=== PATIENT | male | born 1945 | race Caucasian/White ===

== ENCOUNTER 2023-05-03 12:29 | Outpatient (CLI) | payer MEDICARE, SELFPAY ==
[2023-05-03] MEDS: ALBUTEROL 0.083% 2.5 MG/3 ML NEB IH (14:19)
[2023-05-03 16:11] LABS: C-Reactive Protein 7.4 mg/L (0-4)
[2023-05-03 16:16] LABS: Erythrocyte Sedimentation Rate 26 mm/hr (0-20)
[2023-05-04 08:26] LABS: RA Latex Turbid. 515.3 IU/mL (<14.0)
[2023-05-04 15:34] LABS: Cytoplasmic (C-ANCA) <1:20 titer (Neg:<1:20); Perinuclear (P-ANCA) <1:20 titer (Neg:<1:20)
[2023-05-06 15:08] LABS: Antinuclear Antibodies, IFA Negative (.)
[2023-05-09 23:28] LABS: Antinuclear Antibodies (ANA) Negative
== END 2023-05-03 23:59 ==
LOC: RT 12:30
PROVIDERS: PCP Family Medicine; Visit Provider Internal Medicine Pulmonary Disease
DX: J84.9 Interstitial pulmonary disease, unspecified (principal); R06.09 Other forms of dyspnea
CPT/HCPCS: 36415; 84550; 85651; 86038; 86140; 86225; 86235; 86256; 86431; 94060; 94618; 94726; 94729

== ENCOUNTER 2023-05-09 09:19 | Outpatient (CLI) | payer MEDICARE, SELFPAY ==
--- NOTE | 2023-05-09 09:21 | CT_ITS ---
FINAL REPORT TECHNIQUE: Axial CT images were performed from the lung apices through the upper abdomen. The study was performed as a high-resolution CT, which included supine inspiration and expiration axial views, prone inspiration axial views, and high-resolution views. Coronal and sagittal reformats were submitted. This study was performed with techniques to keep radiation doses as low as reasonably achievable (ALARA). Individualized dose reduction techniques using automated exposure control or adjustment of mA and/or kV according to the patient's size were employed. CLINICAL HISTORY: High Res CT chest COMPARISON: None FINDINGS: There is no axillary adenopathy. Several borderline in size mediastinal nodes are present. No adenopathy is seen. Heart size is normal. Moderate coronary artery calcifications are noted. There is no pericardial or pleural effusion. Partially imaged 36 mm right renal upper pole presumed cyst is present, along with a smaller left renal presumed cyst. There is moderate peripheral interstitial fibrosis with mild honeycombing. Mild changes of emphysema are present. No evidence of bronchiectasis is seen, and no air trapping is seen on expiration views. There is a spiculated 26 mm nodule in the lateral right lung base, very worrisome for neoplasm. IMPRESSION: Spiculated lateral right lung base mass, 26 mm in size, very worrisome for neoplasm. Recommend PET CT and/or CT-guided biopsy for further evaluation. Moderate peripheral interstitial fibrosis with mild honeycombing. These results were called to Dr. Monge's office 05/10/2023 at 10:15 AM. Reviewed, Interpreted and Dictated by Olaf Cardozo III, MD Transcribed by Shell Tidwell Authenticated and [facility]
[2023-05-10 07:13] LABS: Hepatitis B Surface Antigen Negative (Negative)
[2023-05-11 16:15] LABS: QuantiFERON-TB Gold Plus Negative (Negative)
[2023-05-14 09:47] LABS: Hepatitis C Antibody Non Reactive
== END 2023-05-09 23:59 ==
LOC: RAD 09:21
PROVIDERS: PCP Internal Medicine Pulmonary Disease; Visit Provider Internal Medicine Pulmonary Disease
DX: D84.821 Immunodeficiency due to drugs; Z79.899 Other long term (current) drug therapy; M06.9 Rheumatoid arthritis, unspecified; R10.9 Unspecified abdominal pain; R06.02 Shortness of breath; J84.89 Other specified interstitial pulmonary diseases; R91.1 Solitary pulmonary nodule; Z87.891 Personal history of nicotine dependence
CPT/HCPCS: 71250; 86480; 87340; 87380

== ENCOUNTER 2023-12-13 14:55 | Outpatient (CLI) | payer MEDICARE, SELFPAY ==
[2023-12-13 15:13] LABS: Basophils % 0.3 % (0.1-2.0); Eosinophils % 0.3 % (0.1-12.0); Hematocrit 42.8 % (42.0-52.0); Hemoglobin 13.7 g/dL (14.1-18.0); Lymphocytes # 1.3 K/mm3 (0.7-4.5); Lymphocytes % 14.7 % (10-50); Mean Corpuscular HGB Conc 32.1 g/dL (31.8-35.4); Mean Corpuscular Hemoglobin 29.4 pg (27.0-31.2); Mean Corpuscular Volume 91.7 fl (80-94); Monocytes # 0.7 K/mm3 (0.1-1.0); Monocytes % 8.1 % (1.7-9.3); Neutrophils # 6.6 K/mm3 (1.8-7.8); Neutrophils % 76.5 % (37.0-80.0); Platelet Count 205 K/mm3 (142-424); Red Blood Count 4.66 M/mm3 (4.60-6.20); Red Cell Distribution Width 17.1 % (11.5-17.5); White Blood Count 8.6 K/mm3 (4.8-10.8)
[2023-12-13 15:32] LABS: Alanine Aminotransferase 28 U/L (12-78); Albumin Level 4.2 g/dl (3.5-5.0); Albumin/Globulin Ratio 1.8 (1.1-1.8); Alkaline Phosphatase 62 U/L (38-126); Anion Gap 8.2 mEq/L (5-15); Aspartate Amino Transferase 29 U/L (17-59); Bilirubin,Total 0.6 mg/dl (0.2-1.3); Blood Urea Nitrogen 20 mg/dl (9-20); Calcium 9.4 mg/dl (8.4-10.2); Carbon Dioxide 25 mmol/L (22.0-30.0); Chloride 108 mmol/L (98-107); Estimated Glomerular Filt Rate 65 ml/min (>60); GFR (African American) 79 ML/MIN (>60); Globulin 2.4 g/dL (1.3-3.2); Glucose 123 mg/dl (74-100); Potassium 4.2 mmoL/L (3.5-5.1); Sodium 137 mmol/L (136-145); Total Protein,Serum 6.6 g/dl (6.3-8.2)
== END 2023-12-13 23:59 | disposition home or self-care (01) ==
LOC: LAB 14:56
PROVIDERS: PCP Family Medicine; Visit Provider Internal Medicine Pulmonary Disease
DX: R06.09 Other forms of dyspnea (principal); J84.9 Interstitial pulmonary disease, unspecified; J45.909 Unspecified asthma, uncomplicated
CPT/HCPCS: 36415; 80053; 85025; 86140

== ENCOUNTER 2023-12-31 14:28 | Outpatient (CLI) | payer MEDICARE, SELFPAY ==
--- NOTE | 2023-12-31 14:33 | CT_ITS ---
PROCEDURE INFORMATION: Exam: CT Chest Without Contrast; Diagnostic Exam date and time: 12/31/2023 2:44 PM Age: 78 years old Clinical indication: Other: Lung nodule; Additional info: Lung nodule, former smoker for 30 yrs TECHNIQUE: Imaging protocol: Diagnostic computed tomography of the chest without contrast. Radiation optimization: All CT scans at this facility use at least one of these dose optimization techniques: automated exposure control; mA and/or kV adjustment per patient size (includes targeted exams where dose is matched to clinical indication); or iterative reconstruction. COMPARISON: 1. CT HR CHEST X3 05/09/2023 9:[address] CHEST WITH CONTRAST 03/09/2023 1:16 PM FINDINGS: Lungs: Interval decrease in size in the previously noted spiculated mass in the lateral right lower lobe now measuring 16 mm and previously measured 26 mm. Bilateral diffuse subpleural interstitial fibrotic changes redemonstrated. Chronic elevation left hemidiaphragm with associated adjacent left basilar subsegmental atelectasis similar to previous. Lungs are otherwise clear. Pleural spaces: Unremarkable. No pneumothorax. No pleural effusion. Heart: Unremarkable. No cardiomegaly. No pericardial effusion. Coronary arteries: Mild coronary artery calcifications are noted. Lymph nodes: Stable small mediastinal nodes. No evident new or increasing mediastinal or hilar adenopathy. Vasculature: Unremarkable. No aortic aneurysm. Kidneys: Bilateral renal cysts redemonstrated. No follow-up advised. Bones/joints: Unremarkable. No acute fracture. Soft tissues: Unremarkable. IMPRESSION: 1. 16 mm right lower lobe nodule or mass with interval decrease in size. Advise additional follow-up CT in 6 months to ensure continued stability or resolution or assess for interval progression. 2. Interstitial fibrotic changes. Left basilar atelectasis with elevation left hemidiaphragm.
== END 2023-12-31 23:59 | disposition home or self-care (01) ==
LOC: RAD 14:29
PROVIDERS: PCP Family Medicine; Visit Provider Internal Medicine Pulmonary Disease
DX: R91.8 Other nonspecific abnormal finding of lung field (principal); Z87.891 Personal history of nicotine dependence
CPT/HCPCS: 71250

== ENCOUNTER 2024-03-31 13:57 | Outpatient (CLI) | payer MEDICARE, SELFPAY ==
--- NOTE | 2024-03-31 14:02 | CT_ITS ---
FINAL REPORT TECHNIQUE: Axial images were obtained from the lung apex to the mid abdomen by computed tomography. Sagittal and coronal reformatted images were obtained. This study was performed with techniques to keep radiation doses as low as reasonably achievable, (ALARA). Individualized dose reduction techniques using automated exposure control or adjustment of mA and/or kV according to the patient's size were employed. CLINICAL HISTORY: RLL nodule COMPARISON: 12/31/2023 and 05/09/2023 FINDINGS: There is a stable anterior mediastinal nodule measuring 12 mm in diameter. No other mediastinal mass or adenopathy is seen. On the lungs windows, there is linear opacity in the periphery of both lungs probably due to scarring. There is a noncalcified mass at the right base measuring 2.4 x 1.2 cm best seen on image #182 series 3. This mass is smaller than that on prior CT from April 2023; however, this is larger than the previous exam from December 2023 measuring 2.0 x 1.0 cm. There is a satellite nodule posterior to this mass measuring 6 mm best seen on image #184 series 3. There is no pericardial or pleural effusion. Limited images of the upper abdomen are unremarkable. IMPRESSION: Redemonstration of the mass in the right lower lobe, similar to the previous, with more conspicuous satellite nodule. Noncalcified mass right base, smaller than prior CT from April 2023 but larger than prior CT from December 2023. While this could represent recurrent inflammatory process, neoplasia not excluded. Recommend PET/CT. Reviewed, Interpreted and Dictated by Dash Gore MD Transcribed by Shanelle Poole Authenticated and [facility]
[2024-03-31] MEDS: ALBUTEROL 0.083% 2.5 MG/3 ML NEB IH (14:35)
--- NOTE | 2024-03-31 14:35 | PC.NURSE ---
Pre and Post Spirometry completed without incident, along with a 6 minute walk test. Albuterol 0.083% given via HHN, per written protocol, Pt tolerated tx well.
== END 2024-03-31 23:59 | disposition home or self-care (01) ==
LOC: RAD 13:59
PROVIDERS: PCP Family Medicine; Visit Provider Internal Medicine Pulmonary Disease
DX: R91.8 Other nonspecific abnormal finding of lung field (principal); R06.09 Other forms of dyspnea
CPT/HCPCS: 71250; 94060; 94618; J7613

== ENCOUNTER 2024-09-23 12:11 | Outpatient (CLI) | payer MEDICARE, SELFPAY ==
--- OUTSIDE RECORDS SUMMARY | 2024-09-23 12:14 | XMS_ITS ---
Author Organization Unknown TREATMENT PLAN Planned Care Start Date Provider Encounter for Check-up [id number] Aimee Brewster
--- OUTSIDE RECORDS SUMMARY | 2024-09-23 12:14 | XMS_ITS | Encounter Summary ---
Author Organization Healthcare Address [address] [place] [address] Care Team Providers Care Hand Tier Name Role Phone Pcp, No Primary Care Provider Unavailabl e Reason for Referral * Consultation (Routine) - Closed Specialty Diagnoses / Procedures Referred By Contac t Referred To Contact Orthopaedic Surgery Diagnoses Spinal stenosis of lumbosacral region Cedric Stein PA [address] [place] [address] Phone: tel: fax: Medical [facility] [address], [address] [place] [address] Phone: tel: fax: Referral ID Status Reason Start Date Expiration Date Visits Re quested Visits Authorized [id number] Closed 10/19/2023 04/19/2025 1 1 Encounter Details Date Type Department Care Team (Late st Contact Info) Description 10/19/2023 [facility] [address] [place] [address] Cedric Stein PA [address] [place] [address] Spinal stenosis of lumbosacral region (Primary Dx) Social History Tobacco Use Types Packs/Day Years Used Date Smoking Tobacco: Never Smokeless Tobacco: Never Alcohol Use Standard Drinks/Week Comments Yes 0 (1 standard drink = 0.6 oz pur e alcohol) rarely PHQ-2 Answer Date Recorded Patient Health Questionnaire-2 Score 0 05/16/2023 Sex and Gender Information Value Date Recorded Sex Assigned at Not on file Legal Sex Male 7:48 PM EDT Gender Identity Not on file Sexual Orientation Not on file documented as of this encounter Plan of Treatment Scheduled Referrals Name Type Priority Associated Diagnoses Orde r Schedule Ambulatory referral to Orthopaedics Spine Outpatient Referral Routine Spinal stenosis of lumbosacral region Expected: 10/19/2023 (Approximate), Expires: 04/20/2025 documented as of this encounter Visit Diagnoses Diagnosis Spinal stenosis of lumbosacral region- Primary documented in this encounter Additional Health Concerns Assessment Noted Time A fall risk assessment has been complete d for the patient 05/16/2023 9:51 AM EDT A Body Mass Index follow-up plan has been documented for the patient 05/16/2023 11:24 AM EDT documented as of this encounter Care Teams Hand Tier Relationship Specialty Start Date End Date Pcp, [place] [address] PCP - General Family Medicine 04/19/23 documented as of this encounter
--- OUTSIDE RECORDS SUMMARY | 2024-09-23 12:14 | XMS_ITS | Clinical Summary ---
Author Organization Healthcare Address [address] [place] [address] Care Team Providers Care Instrumentation Fitter Name Role Phone Pcp, No Primary Care Provider Unavailabl e Allergies Active Allergy Reactions Criticality Noted Date Comments Codeine Other - please docum ent in the comment field Low 04/17/2011 itching Oxycodone Unknown - Patient st ates they do not know rxn details Low 04/17/2011 Medications albuterol 108 (90 Base) MCG/ACT inhaler INHALE 1 TO 2 PUFFS BY MOUTH EVERY 4 TO 6 HOURS Active atorvastatin (Lipitor) 40 MG tablet Active dilTIAZem CD (Cardizem CD) 300 MG 24 hr capsule 03/29/2023 Active hydroCHLOROthiaz kary (HYDRODiuril) 25 MG tablet 04/11/2023 Active Lantus SoloStar 100 UNIT/ML injection pen 05/15/2023 Activ e BD ULTRA-FINE PEN NEEDLES 29G X 12.7MM 05/15/2023 Active losartan (Cozaar) 25 MG tablet 05/15/2023 Active metFORMIN (Glucophage) 850 MG tablet Active mycophenolate (Cellcept) 500 MG tablet Take 1 tablet (500 mg) by mouth 2 (two) times a day. 05/10/2023 Active predniSONE (Deltasone) 10 MG tablet Active ASPIRIN 81 MG chewable tablet Chew 1 tablet (81 mg) 1 (one) time each day. Active NovoLOG FLEXPEN 100 UNIT/ML injection pen 05/15/2023 Activ e Immunizations Immunization Administration Dates Next Due Influenza Vaccine, Quadrivalent, Adjuvanted 11/28,12/22/2020 Influenza, high-dose, quadrivalent 12/07/2021,,12/16/2015 Moderna Covid-19 Vaccine 12y +, Erickson Protein, Preservative free 03/26/2023 Pneumococcal Conjugate PCV 13 12/16/2015 Family History Medical History Relation Name Comments No Known Problems Father No Known Problems Mother Relation Name Status Comments Father Mother Social History Tobacco Use Types Packs/Day Years Used Date Smoking Tobacco: Never Smokeless Tobacco: Never Tobacco Cessation:Counseling Given: Not Answered Alcohol Use Standard Drinks/Week Comments Yes 0 (1 standard drink = 0.6 oz pur e alcohol) rarely PHQ-2 Answer Date Recorded Patient Health Questionnaire-2 Score 0 05/16/2023 Sex and Gender Information Value Date Recorded Sex Assigned at Not on file Legal Sex Male 7:48 PM EDT Gender Identity Not on file Sexual Orientation Not on file Last Filed Vital Signs Vital Sign Reading Time Taken Comments Blood Pressure 110/73 11/01/2023 10:45 AM EDT Pulse 85 11/01/2023 10:45 AM EDT Temperature 36.2 C (97.2 F) 05/16/2023 9:38 AM EDT Respiratory Rate - - Oxygen Saturation 98% 11/01/2023 10:45 AM EDT Inhaled Oxygen Concentration - - Weight 87.1 kg (192 lb) 11/01/2023 10:45 AM EDT Height 180.3 cm (5' 11 ) 11/01/2023 10:45 AM EDT Body Mass Index 26.78 11/01/2023 10:45 AM EDT Plan of Treatment Health Maintenance Due Date Last Done Comments [facility]Medic[facility] Annual Wellness (AWV) 1945 [facility]-Infant/Child/Adol SDOH Screenings 1945 [facility]- SDOH Screenings 10/26/1965 [facility]-Adult SDOH Screenings 10/26/1965 [facility]-DTaP,Tdap,and Td Vaccines (1 - Tdap) 10/26/1966 [facility]-Zoster Vaccines (1 of 2) 10/26/1966 [facility]-Pneumococcal Vaccine: 50+ Years (2 of 2 - PPSV23) 12/15/2016 12/16/2015 [facility]-RSV Vaccine: 60+ Years or (1 - 1-dose 75+ series) 10/26/2022 [facility]-HSODL-27 Vaccine ( season) 2023 03/26/2023, 12/07/2021, 08/12/2021, Additional history exists [facility]-Depression Screening 05/15/2024 05/16/2023 [facility]-Influenza Vaccine (#1) 10/27/202412/25, 12/07/2021, 12/22/2020, Additional history exists [facility]-Hepatitis C Screening Completed 05/16/2023 [facility]-Obesity Intervention Completed 024, 05/16/2023, 05/14/2023 HPV Vaccines Aged Out No longer eligi ble based on patient's age to complete this topic [facility]-HIB Vaccines Aged Out No longer e ligible based on patient's age to complete this topic [facility]-Hepatitis A Vaccines Aged Out No longer eligible based on patient's age to complete this topic [facility]-IPV Vaccines Aged Out No longer e ligible based on patient's age to complete this topic [facility]-Rotavirus Vaccines Aged Out No lo nger eligible based on patient's age to complete this topic Procedures Procedure Name Priority Date/Time Associated Diagnosis Comments ACUTE HEPATITIS PANEL Routine 05/16/2023 11:57 AM EDT Rheumatoid factor positive High risk medication use from Last 3 Months or Most Recently Relevant to Health Maintenance Results * Acute Hepatitis Panel (05/16/2023 11:57 AM EDT) Hepatitis B Surf Antigen Negative Negative 05/16/2023 5:38 PM EDT [facility] Hepatitis C Antibody Negative Negative 05/16/2023 5:38 PM EDT [facility] Hepatitis A Antibody IgM Negative Negative 05/16/2023 5:38 PM EDT [facility] Hepatitis B Core Antibody IgM Negative Negative 05/16/2023 5:38 PM EDT [facility] Blood Venous blood specimen / Unknown Venipuncture / Unknown 05/16/2023 11:57 AM EDT 05/16/2023 11:58 AM EDT Maryse Shrestha [employer] LAB BLOOD ORDERABLES Final Result [facility] [address] [place] [address] from Last 3 Months or Most Recently Relevant to Health Maintenance Insurance [facility] Care Teams Instrumentation Fitter Relationship Specialty Start Date End Date Pcp, [address] [place] [address] PCP - General Family Medicine 04/19/23
--- OUTSIDE RECORDS SUMMARY | 2024-09-23 12:14 | XMS_ITS | Continuity of Care Document ---
Author Organization [facility] DERMATOLOGY [place] Address [address] [place] [address] Care Team Providers Care Traffic Rate Clerk Name Role Phone JOSE REIS Primary Care Provider [phone] GRACIE PARISH [employer] Business Analyst JOSE REIS Referring Provider [phone] Assessment No assessment recorded. Plan of Treatment Reminders Order Date Submit Date Provider Last Modified By Organization Details Last Modified Time Details Appointments NEW PATIENT O 2024 03:30P M MARIO MILLS MD Not available Not available Not available RECHECK 2024 02:00P M DAYNE FAGAN PA-C Not available Not available Not available RHEUM RECHECK 2024 01:30P M GRACIE PARISH MD Not available Not available Not available Lab None recorded . Referral None recorded . Procedures None recorded . Surgeries None recorded . Imaging None recorded . Medication Orders None recorded . Patient TargetsNo targets recorded. Patient Instructions Encounter Date Encounter Id Patient Instructions Last Modified By Organization Details Last Modified Time 08/19/2024 [id number] - Benign keratoses seen on exam today. - Instructed to monitor for changes and to call us for appointment with any changing or worrisome lesions [email or web address] Not available 08/19/2024 12:27:07 Reason for Referral None Reported. Problems Name Problem SNOMED Code Status Onset Date Resolution Date Notes Provider Name and Address Organization Details Recorded Time Diabetes mellitus 41469559 [facility] Problem Notes None recorded. Procedures Surgical History Date Name Laterality Status Provider Name and Address Organization Details Recorded Time 5 Lumbar Epidural Steroid Injection - Slim completed NOLA ZARAGOZA MD [address] [place] [address], [phone], [facility] 05/20/2024 14:45:51 5 DXA Normal completed ALAN SCHAEFFER MD [address] [place] [address], [phone] [place] [facility] 05/19/2024 16:58:53 4 Lumbar Epidural Steroid Injection - Slim completed NOLA ZARAGOZA MD [address] [place] [address], [phone] [place] [facility] 02/01/2024 15:17:15 Prostate Surgery completed Deseriee [place] [facility] 01/25/2017 17:23:14 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 Procedure Notes None recorded. Medical Equipment None Reported. Allergies No known drug allergies Medications Name Sig Start Date Stop Date Status Note LastModified by Organization Details LastModified Time Maxzide-25 mg 37.5 mg-25 mg tablet Daily active Duratio n: 10 days;Fr equency : daily;M edicati on Descrip tion: hydroch lorothi azide-t riamter suraj; Dosage: 1; Route:o ral; refills :0; Quantit y:30 tablet Not Available Not Available Not Available atorvastat in 40 mg tablet Take 1 tablet every day by oral route. active Not Available Not Available No t Available Plaquenil 200 mg tablet Take 1 tablet(s ) twice a day by oral route. 2024 active Not Available Not Available Not Avai lable aspirin 325 mg tablet Daily active Duratio n: 30 days;Fr equency : daily;M edicati on Descrip tion: aspirin ; Dosage: 1; Route:o ral; refills :0; Quantit y:30 tablet Not taking Not Available Not Available Not Available metformin 850 mg tablet Take 1 tablet twice a day by oral route. active Not Available Not Available No t Available Rneo Low Dose Aspirin 81 mg tablet,del ayed release Take 1 tablet every day by oral route. active Not Available Not Available No t Available diltiazem ER 300 mg capsule,24 hr,extende d release Take 1 capsule every day by oral route. active Not Available Not Available No t Available Tylenol Arthritis Ext Relief 650 mg tablet,ext ended release Take 2 tablets every 8 hours by oral route. active Not Available Not Available No t Available mycophenol ate mofetil 500 mg tablet Take 3 tablets twice a day by oral route. active Not Available Not Available No t Available methocarba mol 750 mg tablet Take 1 tablet 3 times a day by oral route. active Not Available Not Available No t Available Tylenol w Codeine 300-60 mg tablet Take 1 tablet every 6 hours by oral route. 11/13 completed Not Available Not Available Not Available losartan 25 mg tablet Take 1 tablet every day by oral route. active Not Available Not Available No t Available gabapentin 300 mg capsule Take 1 capsule every day by oral route as needed for 30 days. 2024 active Not Available Not Available Not Avai lable hydrochlor othiazide 25 mg tablet Take 1 tablet every day by oral route. active Not Available Not Available No t Available Diltia XT 240 mg capsule, extended release Daily active Frequen cy: daily;M edicati on Descrip tion: diltiaz em; Dosage: 1; Route:o ral; refills :0 Not Available Not Available Not Available prednisone 10 mg active Not Available Not Av ailable Not Available Novolog FlexPen U-100 Insulin active Not Available Not Available Not Available Lantus Solostar U-100 Insulin active Not Available Not Available Not Available Orencia ClickJect 125 mg/mL subcutaneo us auto-injec tor 09/27 completed Not Available Not Available Not Available albuterol 90 mcg-budeso nide 80 mcg/actuat ion HFA aerosol inhaler Inhale by inhalati on route. active Not taking Not Available Not Available Not Available Vitals None Recorded Social History Question Answer Notes LastModified by Organizat ion Details LastModified Time Tobacco Smoking Status Former Smoker Annette hodges [facility] 07/04/2023 08:42:42 Marital Status [email or web address] Informatio n not available 01/25/2017 What Was The Date Of Your Most Recent Tobacco Screening? 06/23/2024 [email or web address] Information not available 06/23/2024 What Is Your Relationship Status? [email or web address] Information not available 12/26/2023 Sex: Unknown Functional Status Question Answer Note LastModified by Organization D etails LastModified Time What is your level of alcohol consumption? None [email or web address] Information not available 07/04/2023 Are you currently employed? No [email or web address] Information not available 12/26/2023 Mental Status None recorded. Family History Relationship Description Onset Age of this Age Resolved Age Notes LastModified by Organization Details LastModified Time Unspecified Relation Diabetes mellitus [email or web address] Not available 2016 17:22:29 Medical History Condition Response Diabetes Y Heart Problems N Bleeding Disorder N Arthritis Y Hearing Loss N False Teeth Y Kidney Stones N Blood Clot N Blood Transfusion N Colon/Rectal Disorders N Cancer N Stroke N COPD Y Blood Thinners Y Sleep Apnea N Thyroid Disorder N Neurologic Disorder N Liver Disease N Heart Attack ([place]) N Headaches N Hypertension Y Kidney Disease N Immunizations Vaccine Type Date Status Note Provider Nam e and Address Organization Details Recorded Time COVID-19, mRNA, LNP-S, PF, 100 mcg/0.5mL dose or 50 mcg/0.25mL dose 04/22/2020 completed Melissa Grigsby [facility] 04/22/2020 11:03:37 COVID-19, mRNA, LNP-S, PF, 100 mcg/0.5mL dose or 50 mcg/0.25mL dose 05/20/2020 [facility] Melissa Grigsby [facility] 05/20/2020 16:11:55 Past Encounters Encounter ID Performer Location Encounter Start Date Encounter Closed Date Diagnosis/Indication Diagnosis SNOMED-CT Code Diagnosis ICD10 Code Diagnosis Note [id number] GRACIE PARISH MD [facility] [address] [place] [address] 07/30/2024 13:25:05 07/31/2024 04:50:12 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
--- OUTSIDE RECORDS SUMMARY | 2024-09-23 12:14 | XMS_ITS | Continuity of Care Document ---
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 Was previously seen at [facility]. Following a data control assistant outside (Dr. Monge). He is taking CellCept 500 mg twice a day and Prednisone 10 mg daily (chronic) - prescribed by Dr. Monge. Orencia was denied x 2 (even with appeal). TNF inhibitors should be avoided in the setting of ILD. Started Plaquenil 07/2023, which has been helpful for RA -- with minimal AM stiffness now. Will continue with Plaquenil 200 mg BID. Updated on eye exam 03/25/24. If needed, Rituximab would be next consider for RA and RA-ILD. QuantiFERON TB and hepatitis were negative. DEXA was normal (checked due to chronic steroid use) Follow-up 6 months [email or web address] Not available 07/30/2024 13:56:17 Plan of Treatment Reminders Order Date Submit [...] recorded . Patient TargetsNo targets recorded. Patient InstructionsNo instructions recorded. Reason for Referral None Reported. Problems Name Problem SNOMED Code Status Onset Date Resolution Date Notes Provider Name and Address Organization Details Recorded Time Diabetes mellitus 18045733 [facility] 10:56[facility]58 Problem Notes None recorded. Procedures Surgical History Date Name Laterality Status Provider Name and Address Organization Details Recorded Time 5 Lumbar Epidural Steroid Injection - Slim completed NOLA ZARAGOZA MD [address] [place] [address], [address] [place] [address], [facility] 05/20/2024 14:45:51 5 DXA Normal completed ALAN SCHAEFFER MD [address] [place] [address], [address] [place] [address], [facility] 05/19/2024 16:58:53 4 Lumbar Epidural Steroid Injection - Slim completed NOLA ZARAGOZA MD [address] [place] [address], [address] [place] [address], [facility] 02/01/2024 15:17:15 Prostate Surgery completed Lisette Zavala [facility] 01/25/2017 17:23:14 total replacement of right hip joint completed [facility] 12/26/2023 15:21:41 extraction of cataract completed [facility] 06/23/2024 13:46:52 Imaging Results None recorded. Procedure [...] active Duratio n: 30 days;Fr equency : daily;Julia kelly on Descrip tion: aspirin ; Dosage: 1; Route:o ral; refills :0; Quantit y:30 tablet Not taking Not Available Not Available Not Available metformin 850 mg tablet Take 1 tablet twice a day by oral route. active Not Available Not Available No t Available [place] Low Dose Aspirin 81 mg tablet,del ayed [...] capsule, extended release Daily active Frequen cy: daily;Julia kelly on Descrip tion: diltiaz em; Dosage: 1; [...] Not Available Not Available Not Available Vitals Date Recorded Body height Body mass index (BMI) Body weight Systolic And Diastolic Provider Name and Address Organization Details Last Updated DateTime 07/30/2024 180.34 cm 29.7 kg/m2 64220.17 g 90/62 mm[Hg] Kiara Horn [facility] 07/30/2024 13:33:22 Social History Question Answer Notes LastModified by Organizat ion Details LastModified Time Tobacco Smoking Status [facility]2023 08:42:42 Marital Status jeremy meraz not available 01/25/2017 What Was The Date Of Your Most Recent Tobacco Screening? 06/23/2024 [email or web address] Information not available 06/23/2024 What Is Your Relationship Status? [email or web address] Information not available 12/26/2023 Sex: Unknown Functional Status Question Answer Note LastModified by Organization D etails LastModified Time What is your level of alcohol consumption? None [email or web address] Information not available 07/04/2023 Are you currently employed? No [email or web address] Information not available 12/26/2023 Mental Status None recorded. Family History Relationship Description Onset Age of this Age Resolved Age Notes LastModified by Organization Details LastModified Time Unspecified Relation Diabetes mellitus jeremy Not available 2016 17:22:29 Medical History Condition Response Kidney Stones N Blood Transfusion N COPD Y Arthritis Y Blood Clot N Cancer N Stroke N Neurologic Disorder N Headaches N Kidney Disease N Heart Problems N Bleeding Disorder N Thyroid Disorder N Colon/Rectal Disorders N Hearing Loss N Blood Thinners Y Liver Disease N False Teeth Y Heart Attack ([place]) N Diabetes Y Sleep Apnea N Hypertension Y Immunizations Vaccine Type Date Status Note Provider Nam e and Address Organization Details Recorded Time COVID-19, mRNA, LNP-S, PF, 100 mcg/0.5mL dose or 50 mcg/0.25mL dose 04/22/2020 completed [facility] 04/22/2020 11:03:37 COVID-19, mRNA, LNP-S, PF, 100 mcg/0.5mL dose or 50 mcg/0.25mL dose 05/20/2020 completed Melissa Grigsby [facility] 05/20/2020 16:11:55 Past Encounters Encounter ID Performer Location Encounter Start Date Encounter Closed Date Diagnosis/Indication Diagnosis SNOMED-CT Code Diagnosis ICD10 Code Diagnosis Note [id number] GRACIE PARISH MD RHEUMATOL OGY [address] [place] [address] 07/30/2024 13:25:05 07/31/2024 04:50:12 Seropositive rheumatoid arthritis 516706832 M05.9 In clinical remission. Long-term current use of systemic steroid 8007418640 40982 Z79.52 per Pulmonolog y for ILD Interstiti al lung disease 205570505 J84.9 per Pulmonolog y Long-term current use of hydroxychloroquine 0904064994 18008 Z79.899 Updated on eye exam 02/2024 Health Concerns Section Related Observation LastModified by Organization Detai ls LastModified Time None Recorded Concern Status LastModified by Organization Details LastModified Time None Recorded Payers Encounter Date Sequence Insurance Name Policy Number Policy Lee Covered Member ID Lee Member ID Guarantor Name 07/30/2024 1 [employer] - GOLD PLUS (MEDICARE REPLACEMENT/A DVANTAGE - HMO) Juwan Andrews [id number] Juwan Andrews
--- OUTSIDE RECORDS SUMMARY | 2024-09-23 12:14 | XMS_ITS | Data Portability ---
Author Organization [facility] Address [address] [facility] [address] [place] [address] Care Team Providers Care Flow Match Sofa Cutter Name Role Phone JOSE REIS Primary Care Provider [phone] GRACIE CABAN Electronics Recycler JOSE REIS Referring Provider Assessment Encounter Date Assessment Date Assessment LastModified by Organization Details LastModified Time 06/23/2024 06/23/2024 This is a 78-year-old gentleman seen today for evaluation of lumbar radiculopathy in the setting of stenosis. Recent L1-2 IL GEO has provided notable improvement. Nondermatomal radiation into the legs but more predominantly groin and upper thigh on the right. Denies cauda equina symptoms. Normal sensation, depressed reflexes throughout. He continues gabapentin 300 mg nightly with notable improvement. He denies medication side effects. PMH: DM (insulin) PSHx: Right KAMI 1. MRI lumbar spine report 09/21/2023 demonstrates severe L2-3 and L4-5 spinal canal stenosis. At L2-3 there is an apparent left L2-3 facet cyst with significant encroachment in the central canal resulting in severe spinal stenosis. Severe bilateral L5-S1, left L4-5 foraminal narrowing. 2. Lumbar MRI performed 12/26/2023 demonstrates severe central stenosis L2-3 moderate to severe central narrowing 3 4. Epidural lipomatosis and synovial cyst at L2-3 are present. Foraminal stenosis L4-5, L5-S1 The above image findings were discussed with the patient. Previous injection therapy has included: 05/20/2024 L1-2 ILESI with 80% ongoing 02/01/2024 L1-2 IL GEO 90% Tylenol, Gabapentin TRUNG report was reviewed today and appropriate. Based upon the above I would consider the patient to beLow risk. Patient was prescribed physical therapy and attended 1 visit but discontinued due to pain and symptom exacerbation. He was unable to continue due to level of discomfort. He does continue home exercise program Presentation is consistent with lumbar stenosis and radiculopathy. I recommend: 1. Repeat L1-2 IL GEO on or after 08/20/2024 as needed 2. Home exercise plan reinforced 3. Refill gabapentin 300mg BID. Risks reviewed 4. If stenotic symptoms are persistent despite the above consider neurosurgical evaluation 5. If symptoms are largely low back mediated he does have multifidus atrophy and clinical symptoms suggestive of this, consider PNS versus Reactiv8 I had an in-depth discussion with the patient regarding the risks of the procedure including bleeding, infection, damage to surrounding structures, paralysis and even . We discussed the potential adverse effects of corticosteroid injection including flushing of the face, lipodystrophy, skin discoloration, elevated blood glucose, increased blood pressure. Risks of frequent steroid administration include weight gain, hormonal changes, mood changes, osteoporosis. External records were reviewed and discussed as above, including imaging, clinical notes, and relevant labs. 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 Was previously seen at rheumatology. Following a transcription manager outside (Dr. Monge). He is taking CellCept [...] Details Appointments NEW PATIENT O 2024 03:30P Julia MILLS MD Not available Not available Not available RECHECK 2024 02:00P M DAYNE FAGAN PA-C Not available Not available Not available RHEUM RECHECK 2024 01:30P M GRACIE CABAN MD Not available Not available Not available Lab None recorded . Referral None recorded . Procedures None recorded . Surgeries None recorded . Imaging None recorded . Medication Orders gabapent in 300 mg capsule 2024 025 [id number], [address] , [place], [place], [id number], 06/23/2024 14:17:40 Patient TargetsNo targets recorded. Patient Instructions Encounter Date Encounter Id Patient Instructions Last Modified By Organization Details Last Modified Time 08/19/2024 [id number] - Benign keratoses seen on exam today. - Instructed to monitor for changes and to call us for appointment with any changing or worrisome lesions [email or web address] Not available 08/19/2024 12:27:07 Reason for Referral None Reported. Results Created Date Observation Date Name Description Value Unit Range Abnormal Flag Note LastModifiedBy Organization Detail LastModifiedTime 05/20/19 25 05/19/2024 DEXA No observ ation record ed. [email or web address] Alan Mullen MD [address] [place] [address], [address], 05/20/2024 13:04:43 Result Notes Documentation Provider Name and Address Organization Details Recorded Time Dexa : [address] [id number], Ron (id #[id number], : 1945) [address] [id number] Date: 05/19/2024RE: Juwan Andrews, : 1945, PT ID #[id number] Reis DO, I would like to thank you for referring Juwan Andrews to our practice for consultation and evaluation. I have enclosed a copy of the office evaluation for your records. Sincerely, Electronically Signed by: ALAN MULLEN MDProcedure DocumentationDXA Normal:Bone Densitometry Report Dual Energy X-Ray Absorptiometry (DXA)Baseline bone mineral density measurement was performed on a Hologic QDR-4500C scanner with good technique. Ordering Provider Dr. Caban Indications for the study:1. Screening for osteoporosis/history of glucocorticoid/prior fracture/rheumatoid arthritis The L1-L4 lumbar spine bone density scan demonstrates lumbar spine T-score of 1.2, Z-score of 1.0, BMD 1.175 g/cm . The left hip bone density scan demonstrates a femoral neck T-score of 0.3, Z-score of 0.5, BMD 0.884 g/cm . The total left hip T-score of 0.7, Z-score of 0.4, BMD 1.030 g/cm .IMPRESSION: Normal as demonstrated by bone density measurements.As perNational Osteoporosis Foundation 2014,postmenopausal women and men age 50 and older presenting with any the following should be considered for treatment: A hip or vertebral (clinical or morphometric) fracture or T-score = -2.5 at the femoral neck or spine after appropriate evaluation to exclude secondary causes or Low bone mass (T-score between -1.0 and -2.5 at the femoral neck or spine) and a 10-year probability of a hip fracture = 3% or a 10-year probability of a major osteoporosis-related fracture = 20% based on the [place]-adapted WHO algorithm Patient is not a candidate for pharmacologic therapy of osteoporosis based on the above-mentioned criteria.RECOMMENDATIONS:1. Ensure adequate calcium and vitamin D intake (1200 mg elemental calcium daily and 2000 IU Vit D daily) if this is clinically appropriate. Keep active vitamin D level >30 ng/mL. 2. Encourage practices to help increase bone density (i.e. resistance/weight bearing exercise 3x weekly) if it could be done safely. 3. Discourage practices that would compromise bone density quality ( i.e. smoking, excessive alcohol consumption, and caffeine consumption) when applicable. 4. Follow bone density as appropriate per referring provider, utilizing the same scanning equipment to ensure stability or reliability. 6. Fall prevention. Connie Almodovar (Nicole) [facility] 05/20/2024 13:04:43 Problems Name Problem SNOMED Code Status Onset Date Resolution Date Notes Provider Name and Address Organization Details Recorded Time Diabetes mellitus 01730132 Active Mahi [facility] 4 10:56:58 Problem Notes None recorded. Procedures Surgical History Date Name Laterality Status Provider Name and Address Organization Details Recorded Time 5 Lumbar Epidural Steroid Injection - Slim completed NOLA ZARAGOZA MD [address] [place] [address], [phone], [facility] 05/20/2024 14:45:51 5 DXA Normal completed ALAN MULLEN MD [address] [place] [address], [phone] 05/19/2024 16:58:53 4 Lumbar Epidural Steroid Injection - Slim completed NOLA ZARAGOZA MD [address] [place] [address], [id number] 02/01/2024 15:17:15 [facility] 17:23:14 total replacement of right hip joint completed [facility] 12/26/2023 15:21:41 extraction of cataract completed [facility] 06/23/2024 13:46:52 Imaging Results None recorded. Procedure [...] height Body mass index (BMI) Body weight Heart rate Oxygen saturation Oxygen saturation in Arterial blood by Pulse oximetry Systolic And Diastolic Provider Name and Address Organization Details Last Updated DateTime 5 180.34 cm 29.9 kg/m2 96262.1 7 g 95 /min 95 % 95 % 124/62 mm[Hg] Aleida Daly [facility] 13:45:16 Date Recorded Body height Body mass index (BMI) Body weight Systolic And Diastolic Provider Name and Address Organization Details Last Updated DateTime 07/30/2024 180.34 cm 29.7 kg/m2 05763.17 g 90/62 mm[Hg] Kiara Horn [facility] 07/30/2024 13:33:22 Social History Question Answer Notes LastModified by Organizat ion Details LastModified Time Tobacco Smoking Status [facility] 08:42:42 Marital Status jeremy Informatio n not available 01/25/2017 What Was The Date Of Your Most Recent Tobacco Screening? 06/23/2024 [email or web address] Information not available 06/23/2024 What Is Your Relationship Status? [email or web address] Information not available 12/26/2023 Sex: Unknown Functional Status Question Answer Note LastModified by Organization D etails LastModified Time What is your level of alcohol consumption? None [email or web address] Information not available 07/04/2023 Are you currently employed? No [email or web address] Information not available 12/26/2023 Mental Status None [...] Disorder N Liver Disease N Heart Attack ([place]) N Headaches N Hypertension Y Kidney Disease N Immunizations Vaccine Type Date Status Note Provider Nam e and Address Organization Details Recorded Time COVID-19, mRNA, LNP-S, PF, 100 mcg/0.5mL dose or 50 mcg/0.25mL dose 04/22/2020 [facility] 04/22/2020 11:03:37 COVID-19, mRNA, LNP-S, PF, 100 mcg/0.5mL dose or 50 mcg/0.25mL dose 05/20/2020 completed Melissa Grigsby [facility] 05/20/2020 16:11:55 Past Encounters Encounter ID Performer Location Encounter Start Date Encounter Closed Date Diagnosis/Indication Diagnosis SNOMED-CT Code Diagnosis ICD10 Code Diagnosis Note [id number] DEEP MULLER MD [facility] [address] [facility],[address] [place] [address] 01/25/2017 15:34:34 01/31/2017 12:10:01 History of malignant neoplasm of prostate 326244054 Z85.46 [id number] NNEKA GONZALES MD SAME DAY [facility] [address] [place] [address] 05/20/2020 10:13:11 05/20/2020 10:13:57 [id number] GRACIE CABAN MD RHEUMATOL OGY [place] [address] [place] [address] 07/04/2023 08:25:42 07/05/2023 04:59:53 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 I will need to see what workup has been done already.Fo r now, I have advised him to continue his chronic prednisone 10 mg dose and CellCept, per his pulmonolog ist. I discussed with him regarding risks of long-term steroid use. I would ideally like him to be off or on the lowest dose possible. Pending review, will consider other DMARDs or other Biologics. [id number] [place] [address] [place] [address] 08/01/2023 10:40:47 08/02/2023 04:13:07 Seropositive rheumatoid arthritis 357776403 M05.9 Long-term drug therapy 885020381 Z79.899 [id number] NOLA ZARAGOZA MD [facility] [address] [place] [address] 11/14/2023 12:36:04 11/15/2023 04:43:43 Degeneration of lumbar intervertebral disc 71569246 M51.36 Lumbar radiculopathy 128 047854 M54.16 Lumbar spondylosis 00767 0009 M47.816 Spinal jimena nosis of lumbar region 89443464 M48.062 [id number] GRACIE CABAN MD RHEUMATOL OGY [place] [address] 12/18/2023 09:21:31 12/19/2023 04:19:32 Seropositive rheumatoid arthritis 622885969 M05.9 Long-term drug therapy 163532054 Z79.899 [id number] DAYNE FAGAN PA-C [facility] CLOSED [address] [place] [address] 1 12/26/2023 15:06:17 12/27/2023 04:51:10 Degeneration of lumbar intervertebral disc 47800140 M51.362 Lumbar radiculopathy 128 930164 M54.16 Lumbar spondylosis 50564 0009 M47.816 Spinal jimena nosis of lumbar region 80613074 M48.062 Displaceme nt of lumbar intervertebral disc 7081515081 M51.26 Low back pain 574913569 M54.51 [id number] [facility] PROFESSIO NAL CHARGES [address] [place] [address], [address] [place] [address] 02/01/2024 14:14:44 02/01/2024 15:42:09 Lumbar radiculopathy 722384500 M54.16 [id number] NOLA ZARAGOZA MD [facility] CLOSED [address] [place] [address] 1 04/02/2024 12:54:52 04/03/2024 04:45:17 Degeneration of lumbar intervertebral disc 47243220 M51.362 Lumbar radiculopathy 128 823144 M54.16 Spinal jimena nosis of lumbar region 25136984 M48.062 [id number] GRACIE CABAN MD RHEUMATOL OGY [place] [address] 1 04/02/2024 13:23:10 04/07/2024 15:06:41 Seropositive rheumatoid arthritis 847877343 M05.9 Long-term current use of systemic steroid 1255452936 53373 Z79.52 Interstiti al lung disease 973148279 J84.9 Long-term current use of hydroxychloroquine 1423657899 57434 Z79.899 [id number] [place] [address] [place] [address] 1 05/19/2024 13:29:09 05/19/2024 14:22:29 Screening for osteoporosis 349094095 Z13.820 [id number] [facility] OF [facility] PROFESSIO NAL CHARGES [address] [facility], [address] [place] [address] 1 05/20/2024 13:48:02 05/20/2024 15:55:15 Lumbar radiculopathy 577802432 M54.16 [id number] DAYNE FAGAN PA-C PAIN MEDICINE [address] [place] [address] 1 06/23/2024 13:12:20 06/23/2024 16:00:54 Spinal stenosis of lumbar region 84049322 M48.062 Degenerati on of lumbar intervertebral disc 75686959 M51.362 Lumbar radiculopathy 128 019341 M54.16 [id number] GRACIE CABAN MD RHEUMATOL OGY [facility] [address] [place] [address] 1 07/30/2024 13:25:05 07/31/2024 04:50:12 Seropositive rheumatoid arthritis 017048389 M05.9 In clinical remission. 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 Benign Reassuranc e Skin tag 655832465 L91.8 - Benign Reassuranc e- Discussed LN Treatment Open comedone 153233168 L70.0 Benign Reassuranc e Health Concerns Section Related Observation LastModified by Organization Detai ls LastModified Time None Recorded Concern Status LastModified by Organization Details LastModified Time None Recorded Advance Directives Directive None Recorded Payers Insurance Date Sequence Insurance Name Policy Number Policy Lee Covered Member ID Lee Member ID Guarantor Name 06/23/2024 PAYMENT PLAN Juwan Andrews 08/16/2024 1 [employer] - GOLD PLUS (MEDICARE REPLACEMENT/A DVANTAGE - HMO) Juwan Andrews [id number] Juwan Andrews 03/12/2024 [employer] (MEDICARE REPLACEMENT/A DVANTAGE - PPO) Juawn Andrews [id number] Juwan Andrews 03/12/2024 1 [employer] (PPO) Juwan Andrews [id number] Juwan Andrews
--- OUTSIDE RECORDS SUMMARY | 2024-09-23 12:14 | XMS_ITS | Clinical Summary ---
Author Organization [facility] Address [address] [place] [address] Care Team Providers Care Commercial Green Building Architect Name Role Phone Cathie Hopper Primary Care Provider [phone] Social History Tobacco Use Types Packs/Day Years Used Date Smoking Tobacco: Never Assessed Abuse Screen Answer Date Recorded Unsafe at Home or Work/School Not on file Feels Threatened by Someone? Not on file 10/2022 Does Anyone Keep You from Co ntacting Others or Doint Things Outside the Home? Not on file 12/04/2022 Physical Sign of Abuse Present Not on file 1 Housing Stability Answer Date Recorded Current Living Arrangements Not on file 10/2022 Potentially Unsafe Housing Conditions Not on gennaro e 12/04/2022 Family and Community Support Answer Sherman e Recorded Help with Day-to-Day Activities Not on file 12/04/2022 Lonely or Isolated Not on file 12/04/2022 Employment Answer Date Recorded Do you want help finding or keeping work or a kwasi b? Not on file 12/04/2022 Disabilities Answer Date Recorded Concentrating, Remembering, or Making Decisions Difficulty Not on file 12/04/2022 Doing Errands Independently Difficulty Not on fi le 12/04/2022 Education Answer Date Recorded Help with school or training? Not on file Preferred Language Not on file 12/04/2022 Sex and Gender Information Value Date Recorded Sex Assigned at Not on file Legal Sex Male 12:29 PM EDT Gender Identity Not on file Sexual Orientation Not on file Plan of Treatment Health Maintenance Due Date Last Done Comments ANNUAL WELLNESS VISIT 1945 TDAP/TD VACCINES (1 - Tdap) 10/26/1966 ZOSTER VACCINE (1 of 2) 10/26/1997 Pneumococcal Vaccine 50+ (2 of 2 - PPSV23) 12/15/2016 12/16/2015 RSV Vaccine - Adults (1 - 1- dose 75+ series) 10/26/2022 COVID-19 Vaccine (4 - 2023-2 5 season) 2023 03/26/2023, 05/20/2020, 04/22/2020 INFLUENZA VACCINE 11/26/2024 12/25/2022, , 12/22/2020, Additional history exists HEPATITIS C SCREENING Completed 05/16/2023 Procedures Procedure Name Priority Date/Time Associated Diagnosis Comments SCANNED EMG 07/03/2024 from Last 3 Months Results * EMG SCANNED (07/03/2024) [facility] New Onbase NEUROLOGY ORDERABLES Final Re sult from Last 3 Months Insurance [employer]- MEDICARE ADVANTAGE [facility] - NON PAR Care Teams Commercial Green Building Architect Relationship Specialty Start Date End Date Cathie Hopper DO [address] [place] [id number] PCP - General Family Medicine 07/15/24
--- OUTSIDE RECORDS SUMMARY | 2024-09-23 12:14 | XMS_ITS | Data Portability ---
Author Organization [facility] ADMIN Address [address] [place] [address] Assessment No assessment recorded. Plan of Treatment Reminders Order Date Submit Date Provider Last Modified By Organization Details Last Modified Time Details Appointments None recorded. Lab None recorded. Referral None recorded. Procedures None recorded. Surgeries None recorded. Imaging None recorded. Medication Orders amoxicillin 500 mg capsule 2022 023 [id number], [address] [place], [id number], 15:01:17 Patient TargetsNo targets recorded. Patient InstructionsNo instructions recorded. Reason for Referral None Reported. Results Created Date Observation Date Name Description Value Unit Range Abnormal Flag Note LastModifiedBy Organization Detail LastModifiedTime 10/03/19 23 09/27/2022 CT, neck, soft tissu e, w/o contr ast No observ ation record ed. BARCODE Not Available 2022 08:37:51 Result Notes None recorded. Procedures Surgical History Date Name Laterality Status Provider Name and Address Organization Details Recorded Time prostatectomy completed Kya Hess [facility] 10/03/2022 14:00:09 Imaging Results None recorded. Procedure Notes None recorded. Medical Equipment None Reported. Allergies No known drug allergies Medications Name Sig Start Date Stop Date Status Note LastModified by Organization Details LastModified Time amoxicillin 500 mg capsule TAKE 1 CAPSULE BY MOUTH EVERY 8 HOURS FOR 10 DAYS active Not Available Not Available No t Available atorvastati n 40 mg tablet active Not Available Not Available Not Available methocarbam ol 500 mg tablet TAKE 1 TABLET BY MOUTH EVERY EVENING NEEDED FOR NECK PAIN. MAY CAUSE SEDATION active Not Available Not Available No t Available prednisone 10 mg tablet active Not Available Not Available Not Available metformin 850 mg tablet active Not Available Not Available Not Available diltiazem CD 300 mg capsule,ext ended release 24 hr active Not Available Not Available Not Available hydrochloro thiazide 25 mg tablet active Not Available Not Available No t Available albuterol sulfate HFA 90 mcg/actuati on aerosol inhaler INHALE 1 TO 2 PUFFS BY MOUTH EVERY 4 TO 6 HOURS active Not Available Not Available No t Available doxycycline hyclate 100 mg tablet TAKE 1 TABLET BY MOUTH TWICE DAILY 10/03 completed Not Available Not Available Not Available amoxicillin 500 mg-potassiu m clavulanate 125 mg tablet active Not Available Not Available Not Available Vitals Date Recorded Body height Body mass index (BMI) Body weight Body temperature Heart rate Systolic And Diastolic Provider Name and Address Organization Details Last Updated DateTime 3 180.34 cm 25.8 kg/m2 56235.8 7 g 96.3 [degF] 116 /min 148/78 mm[Hg] [facility] 3 13:57:49 Social History None recorded. Functional Status None recorded. Mental Status None recorded. Family History Nothing Reported. Medical History Condition Response None N Emphysema N Depression N Glaucoma N Anesthesia Complications N Anxiety Disorder N Arthritis N Hearing Loss N Acid Reflux (GERD) N Cancer N Stroke N Fibromyalgia N Headaches N Speech Delay N Kidney Disease N Allergies/Hayfever N Heart Problems N Heart Conditions N Migraines N Thyroid Problems N Developmental Delay N Anemia N Immune System Disorder N Heart Attack (OR) N Diabetes N Bleeding Disorder N Tuberculosis N Hyperlipidemia N Asthma N Sleep Disorder N GERD/Reflux N Heart Disease N Hypertension Y Past Encounters Encounter ID Performer Location Encounter Start Date Encounter Closed Date Diagnosis/Indication Diagnosis SNOMED-CT Code Diagnosis ICD10 Code Diagnosis Note [id number] Rosemarie Villarreal MD [facility] [id number] [facility] [place] [address] 10/03/2022 13:47:43 10/03/2022 14:14:09 Sialolithiasis 98499853 K11.[address] results with him in the office today. CT showed a 5mm calculus in the right Peter duct with dilation of the duct. Explained this was a salivary stone that is benign in nature. Explained I am hesitant to perform a submandibu lar excision given that this is an infrequent problem. He is going out of town and would like an antibiotic to take with him case he develops another episode of swelling. I am happy to send in Amoxicilli n for him to start only if he develops swelling. He showed understand ing. I will see him in office when he returns from him trip early October, sooner if needed. Maybe a candidate for sialoendos copy given this is a 5mm stone Health Concerns Section Related Observation LastModified by Organization Detai ls LastModified Time None Recorded Concern Status LastModified by Organization Details LastModified Time None Recorded Advance Directives Directive None Recorded Payers Insurance Date Sequence Insurance Name Policy Number Policy Lee Covered Member ID Lee Member ID Guarantor Name 10/03/2022 1 [employer] (MEDICARE REPLACEMENT/A DVANTAGE - PPO) Juwan Andrews [id number] Juwan Andrews 10/29/2022 1 [employer] (MEDICARE REPLACEMENT/A DVANTAGE - HMO) Juwan Andrews [id number] Juwan Andrews
--- NOTE | 2024-09-23 13:00 | CT_ITS ---
FINAL REPORT TECHNIQUE: Thin section axial images were obtained from the lung apices through the upper abdomen without contrast. This study was performed with techniques to keep radiation doses as low as reasonably achievable (ALARA). Individualized dose reduction techniques using automated exposure control or adjustment of mA and/or kV according to the patient's size were employed. CLINICAL HISTORY: lung nodule COMPARISON: 03/31/2024 FINDINGS: There is no hilar or axillary lymphadenopathy. There is an 11 mm anterior mediastinal node, stable since the prior CT. No new mediastinal adenopathy is identified. No pleural or pericardial effusion. There is chronic elevation of the left hemidiaphragm. Changes of emphysema are present. There has been an interval increase in size of the spiculated right lower lobe mass seen on the prior exam, currently measuring 25 x 16 mm in size, was 21 x 10 mm on remeasurement. There is a satellite nodule posterior to the larger mass in the right lower lobe, measuring 11 mm in size, was previously 9 mm in size. There is a new 5 mm nodule in the right major fissure best seen on image #40 of series 2, that likely represents an intrafissural node. There are bilateral hypodense renal lesions incompletely imaged, also seen on the prior exam. There is no acute osseous abnormality. IMPRESSION: Interval increase in size in the spiculated right lower lobe nodule, currently measuring 25 x 16 mm in size. The satellite nodule posterior to the larger nodule is also slightly larger, measuring 11 mm in size. Recommend PET/CT for further evaluation if not previously obtained. There is a new 5 mm nodule in the right major fissure, likely represents an intrafissural node. Reviewed, Interpreted and Dictated by Nirali Borden MD Transcribed by Shell Tidwell Authenticated and [facility]
== END 2024-09-23 23:59 | disposition home or self-care (01) ==
LOC: RAD 12:12
PROVIDERS: PCP Family Medicine; Visit Provider Internal Medicine Pulmonary Disease
DX: R91.8 Other nonspecific abnormal finding of lung field (principal); J98.4 Other disorders of lung; R06.09 Other forms of dyspnea
CPT/HCPCS: 71250

== ENCOUNTER 2024-12-30 10:16 | Outpatient (CLI) | payer MEDICARE, SELFPAY ==
--- OUTSIDE RECORDS SUMMARY | 2024-12-30 10:23 | XMS_ITS | Encounter Summary ---
Author Organization Healthcare Address [address] [place] [address] Care Team Providers Care Attorney Recruiter Name Role Phone Pcp, No Primary Care Provider Unavailabl e Reason for Referral * Consultation (Routine) - Closed Specialty Diagnoses / Procedures Referred By Contac t Referred To Contact Orthopaedic Surgery Diagnoses Spinal stenosis of lumbosacral region Cedric Stein PA [address] [place] [address] Phone: tel: fax: [facility] [address] [facility] [address], [address] [place] [address] Phone: tel: fax: Referral ID Status Reason Start Date Expiration Date Visits Re quested Visits Authorized [id number] Closed 10/19/2023 04/19/2025 1 1 Encounter Details Date Type Department Care Team (Late st Contact Info) Description 10/19/2023 [facility] [address] [place] [address] Cedric Stein PA [address] [place] [address] Spinal stenosis of lumbosacral region [...] documented as of this encounter Care Teams Attorney Recruiter Relationship Specialty Start Date End Date Pcp, [place] [address] PCP - General Family Medicine 04/19/23 documented as of this encounter
--- OUTSIDE RECORDS SUMMARY | 2024-12-30 10:23 | XMS_ITS | Clinical Summary ---
Author Organization [facility] Address [address] [place] [address] Care Team Providers Care Field Automobile Adjuster Name Role Phone Cathie Hopper Primary Care Provider [phone] Social History Tobacco Use Types Packs/Day Years [...] Pneumococcal Vaccine 50+ (2 of 2 - PCV20 or PCV21) 12/15/2016 12/16/2015 RSV Vaccine - Adults (1 - 1- dose 75+ series) 10/26/2022 INFLUENZA VACCINE 09/26/2024 12/25/2022, , 12/22/2020, Additional history exists COVID-19 Vaccine (2024-2 6 season) 2024 03/26/2023, 05/20/2020, 04/22/2020 HEPATITIS C SCREENING Completed 05/16/2023 Insurance [employer]- MEDICARE ADVANTAGE [facility] - NON PAR Care Teams Field Automobile Adjuster Relationship Specialty Start Date End Date Cathie Hopper DO [address] [place] [id number] PCP - General Family Medicine 07/15/24
--- OUTSIDE RECORDS SUMMARY | 2024-12-30 10:23 | XMS_ITS | Clinical Summary ---
Author Organization Healthcare Address [address] [place] [address] Care Team Providers Care Interlibrary Loan Services Librarian Name Role Phone Pcp, No Primary Care [...] Health Maintenance Due Date Last Done Comments [facility]-Medicare Annual Wellness (AWV) 1945 [facility]-/Child/Adol SDOH Screenings 1945 [facility]- SDOH Screenings 10/26/1965 [facility]-Adult SDOH Screenings 10/26/1965 [facility]-DTaP,Tdap,and Td Vaccines (1 - Tdap) 10/26/1966 [facility]-Zoster Vaccines (1 of 2) 10/26/1966 [facility]-Pneumococcal Vaccine: 50+ Years (2 of 2 - PCV20 or PCV21) 12/15/2016 12/16/2015 [facility]-RSV Vaccine: 60+ Years or (1 - 1-dose 75+ series) 10/26/2022 [facility]-Depression Screening 05/15/2024 05/16/2023 NQT-LOUNP-51 Vaccine ( season) 2024 03/26/2023, 12/07/2021, 08/12/2021, Additional history exists [facility]-Influenza Vaccine (#1) 10/27/202412/25, 12/07/2021, 12/22/2020, Additional [...] Antigen Negative Negative 05/16/2023 5:38 PM EDT [facility] Hepatitis C Antibody Negative Negative 05/16/2023 5:38 PM EDT [facility] Hepatitis A Antibody IgM Negative Negative 05/16/2023 5:38 PM EDT [facility] Hepatitis B Core Antibody IgM Negative Negative 05/16/2023 5:38 PM EDT [facility] Blood Venous blood specimen / Unknown Venipuncture / Unknown 05/16/2023 11:57 AM EDT 05/16/2023 11:58 AM EDT Maryse Shrestha COMMERCIAL TECHNICIAN LAB BLOOD ORDERABLES Final Result [facility] [address] [place] [phone] from Last 3 Months or Most Recently Relevant to Health Maintenance Insurance [facility] MEDICARE Care Teams Interlibrary Loan Services Librarian Relationship Specialty Start Date End Date Pcp, Mariel[address] [place] [address] PCP - General Family Medicine 04/19/23
--- NOTE | 2024-12-30 11:00 | CT_ITS ---
FINAL REPORT TECHNIQUE: Ion protocol was utilized. Thin section axial images were obtained from the lung apices through the upper abdomen without contrast. This study was performed with techniques to keep radiation doses as low as reasonably achievable (ALARA). Individualized dose reduction techniques using automated exposure control or adjustment of mA and/or kV according to the patient's size were employed. CLINICAL HISTORY: ION scheduled 01/02 soa FINDINGS: The thyroid and thoracic inlet are unremarkable. There are vascular calcifications of the aorta. There are LAD coronary artery calcifications. The heart is normal in size. The main pulmonary artery is enlarged when compared to the aorta consistent with pulmonary arterial hypertension. There is a stable 11 mm lymph node in the anterior mediastinum with an adjacent stable 8 mm lymph node. There is evidence of prior granulomatous disease. There are emphysematous changes bilaterally that are greatest on the right. There is bronchial thickening with mild bronchiectasis. A spiculated mass in the right lower lobe has increased in size and now measures 32 x 20 mm and previously measured 20 x 11 mm. There is a small satellite nodule measuring 9 mm that is stable in size. There is mild pulmonary vascular congestion. IMPRESSION: Interval increase in size of a right lower lobe mass concerning for malignancy. This would be amenable to percutaneous biopsy. Reviewed, Interpreted and Dictated by Dennys Bailey MD Transcribed by MARYAM Christie Authenticated and . [facility]
[2024-12-30 11:34] LABS: Hematocrit 40.4 % (42.0-52.0); Hemoglobin 13.0 g/dL (14.1-18.0); Immature Granulocytes % 0.8 %; Mean Corpuscular HGB Conc 32.2 g/dL (31.8-35.4); Mean Corpuscular Hemoglobin 30.7 pg (27.0-31.2); Mean Corpuscular Volume 95.5 fl (80-94); Nucleated Red Blood Cells % 0 %; Platelet Count 214 K/mm3 (142-424); Red Blood Count 4.23 M/mm3 (4.60-6.20); Red Cell Distribution Width-SD 45.3 fL; White Blood Count 11.3 K/mm3 (4.8-10.8)
[2024-12-30 12:17] LABS: Alanine Aminotransferase 27 U/L (12-78); Albumin Level 4.3 g/dl (3.5-5.0); Albumin/Globulin Ratio 1.5 (1.1-1.8); Alkaline Phosphatase 75 U/L (38-126); Anion Gap 14.8 mEq/L (5-15); Aspartate Amino Transferase 29 U/L (17-59); Bilirubin,Total 0.6 mg/dl (0.2-1.3); Blood Urea Nitrogen 20 mg/dl (9-20); Calcium 9.6 mg/dl (8.4-10.2); Carbon Dioxide 27 mmol/L (22.0-30.0); Chloride 101 mmol/L (98-107); Creatinine,Serum 1.10 mg/dl (0.66-1.25); Estimated Glomerular Filt Rate 65 ml/min (>60); GFR (African American) 79 ML/MIN (>60); Globulin 2.9 g/dL (1.3-3.2); Glucose 100 mg/dl (74-100); Potassium 3.8 mmoL/L (3.5-5.1); Sodium 139 mmol/L (136-145); Total Protein,Serum 7.2 g/dl (6.3-8.2)
[2024-12-30 12:22] LABS: C-Reactive Protein 1.0 mg/L (0-4)
[2024-12-30] MEDS: ALBUTEROL 0.083% 2.5 MG/3 ML NEB IH (12:24)
--- NOTE | 2024-12-30 12:26 | PC.NURSE ---
Pre and Post Spirometry completed without incident. Albuterol 0.083% given via HHN, per written protocol, Pt tolerated tx well.
== END 2024-12-30 23:59 | disposition home or self-care (01) ==
LOC: RAD 10:16
PROVIDERS: PCP Family Medicine; Visit Provider Internal Medicine Pulmonary Disease
DX: J45.909 Unspecified asthma, uncomplicated (principal); J84.9 Interstitial pulmonary disease, unspecified; R91.1 Solitary pulmonary nodule; R91.8 Other nonspecific abnormal finding of lung field; R94.2 Abnormal results of pulmonary function studies
CPT/HCPCS: 71250; 80053; 85025; 86140; 94010

== ENCOUNTER 2025-01-02 08:58 | Day surgery (SDC) | payer MEDICARE, SELFPAY ==
--- NOTE | 2024-12-30 11:26 | ECG_ITS ---
APPROVED REPORT Exam: Resting ECG HR:81 bpm ECG Measurements Heart Rate 81 AXES KS 154 P 81 QRSd 94 QRS 8 QT 386 T 62 QTc 423 Conclusion SINUS RHYTHM LOW QRS VOLTAGE IN PRECORDIAL LEADS [QRS DEFLECTION < 1.0 mV IN CHEST LEADS] POSSIBLE RIGHT VENTRICULAR CONDUCTION DELAY [RSR (QR) IN V1/V2] BORDERLINE ECG UNCONFIRMED REPORT Electronically signed by : Otis Medrano MD 12/31/2024 07:59:31
[2024-12-30 14:51] VITALS: BMI 29.0
[2025-01-02] VITALS (9 sets, daily range): BP systolic 133–163; BP diastolic 67–92; PULSE 82–89; RESP 16–18; TEMP 36.1; O2SAT 92–97
[2025-01-02] MEDS: LACTATED RINGERS 1000ML 1,000 ML 25 ML IV (09:51)
--- NOTE | 2025-01-02 09:56 | EXP.ANES.CKL ---
[facility] Disclaimer: The information contained in this section may have been updated after the patient was seen, as this information can be updated by other users. Medical History Lung nodule Abdominal pain Encounter for health maintenance examination Rheumatoid arthritis Encounter for preventive health examination Immunocompromised state due to drug therapy ILD (interstitial lung disease) Restrictive lung disease Fibrosis of lung Encounter for screening for malignant neoplasm of lung History of smoking 30 or more pack years History of 2019 novel coronavirus disease (COVID-19) Dyspnea on exertion COVID-19 RSV (respiratory syncytial virus infection) COPD (chronic obstructive pulmonary disease) Surgical History History of prostate surgery History of hernia surgery History of hip replacement Family History Other Hypertension Social History Smoking Status: Former smoker tobacco type: cigarettes packs per day: 3 alcohol intake: former substance use type: denies use current occupational status: retired Travel in the last 8 weeks?: None [facility] Anesthesia Checklist Patient Identification Patient Identification: Verbal (Name & ) Structural Data Admitted From: Home Planned Operative Procedure/s: bronchoscopy Consent for Planned Operative Procedure(s) Verified: Yes NPO Status Verified Time NPO: 00:00 Additional verifications Anesthesia Reactions: No Hx Blood Transfusions: No Blood Transfusion Reaction: No Airway Assessment Mallampati Score:: Class II C-Spine Mobility Assessed: Yes TMJ Mobility Assessed: Yes Dentition: Edentulous Neurological Assessment Level of Consciousness: Awake, Alert and Appropriate Anesthesia Plan Anesthesia Risk discussed: Yes Anesthesia Plan: Verified ASA Class: III Anesthesia Type: General
--- NOTE | 2025-01-02 12:14 | EXP.PULM.CON ---
History of Present Illness History of present illness: This is not a pulmonary learning and development consultant. This is a history and physical note for patient's current presentation to the hospital for his elective procedure. Mr. Andrews is a 79-year-old male greater than [id number] smoking history stopped smoking January 2023 currently following in pulmonary clinic for exertional dyspnea, pulmonary emphysema, RA CT ILD multiple pulmonary nodules and restrictive lung disease found to have right lower lobe nodule that was PET avid presented to the hospital For an elective bronchoscopy procedure. He admits stable respiratory symptoms with no new complaints and last seen in pulmonary clinic. [facility] Disclaimer: The information contained in this section may have been updated after the patient was seen, as this information can be updated by other users. Medical History Lung nodule Abdominal pain Encounter for health maintenance examination Rheumatoid arthritis Encounter for preventive health examination Immunocompromised state due to drug therapy ILD (interstitial lung disease) Restrictive lung disease Fibrosis of lung Encounter for screening for malignant neoplasm of lung History of smoking 30 or more pack years History of 2019 novel coronavirus disease (COVID-19) Dyspnea on exertion COVID-19 RSV (respiratory syncytial virus infection) COPD (chronic obstructive pulmonary disease) Surgical History History of prostate surgery History of hernia surgery History of hip replacement Family History Other Hypertension Social History (Updated 01/02/25 @ 09:57 by Hipolito Orona CRNA) Smoking Status: Former smoker tobacco type: cigarettes packs per day: 3 alcohol intake: former substance use type: denies use current occupational status: retired Travel in the last 8 weeks?: None Have you lived/traveled outside [place] in past 30 days?: No Contact w/someone who lives/traveled outside [place] past 30 days?: No Exposure to someone with infectious disease in past 14 days?: No Do you have a fever (greater than 100.4 F or 38 C)?: No Have you tested positive for COVID-19?: No Exposed to someone with COVID-19 in past 14 days?: No Do you have a sore throat?: No Do you have a cough?: No Do you have any weakness?: No Do you have any diarrhea?: No Are you experiencing any unusual bleeding?: No Do you have any muscle aches/pain?: No Do you have any abdominal pain?: No Are you experiencing loss of taste or smell?: No Review of Systems Constitutional Constitutional: Denies anorexia, Denies body ache(s) and Denies fatigue Eyes Eyes: Denies eye discharge, Denies dry eyes, Denies irritation and Denies itchy eyes ENT Ears, Nose, Mouth, and Throat: Denies epistaxis, Denies facial pain, Denies lip swelling and Denies throat swelling *Cardiovascular Cardiovascular: Reports dyspnea and Reports dyspnea on exertion *Respiratory Respiratory: Denies change in phlegm color, Reports chest congestion, Reports cough, Reports dyspnea, Reports dyspnea on exertion, Denies excessive phlegm production, Denies hemoptysis, Denies pain on inspiration, Denies pain with cough and Denies wheezing *Gastrointestinal Gastrointestinal: Denies abdominal pain, Denies belching and Denies cramping *Musculoskeletal Musculoskeletal: Reports back pain, Reports joint swelling, Reports myalgias, Reports stiffness and Reports other (No small joint swelling or Pain) Psychiatric Psychiatric: Denies homicidal ideation and Denies suicidal ideation Endocrine Endocrine: Denies fatigue and Denies heat intolerance Hematologic/Lymphatic Hematologic/Lymphatic: Denies easy bleeding and Denies lymphadenopathy Allergic/Immunologic Allergic/Immunologic: Denies itchy eyes, Denies lip swelling, Denies throat swelling and Denies wheezing Pulmonology Exam Inpatient Vital signs and Labs for Last 24 Hours: Temp Pulse Resp BP Pulse Ox O2 Del Method 97 F L 89 18 163/89 H 96 Room Air 01/02/25 09:25 01/02/25 09:25 01/02/25 09:25 01/02/25 09:25 01/02/25 09:25 01/02/25 09:25 I & O for Labs for Last 24 Hours: Intake & Output 12/30/24 12/31/24 01/01/25 01/02/25 23:59 23:59 23:59 23:59 Weight 208 lb Constitutional: Present mild distress Head: Present normocephalic and atraumatic ENT: Present normal exam, normal oropharynx and mucous membranes moist Neck: Present normal inspection and full ROM Respiratory: Present able to speak in complete sentences; Absent prolonged expiratory phase, respiratory distress, rhonchi, wheezes, crackles or diminished air movement Cardiac: Present S1/S2, Tachycardia and radial pulses present GI: Present soft and distention; Absent tenderness or guarding Skin: Present intact; Absent cyanosis or jaundice Neuro: Present alert, awake and oriented x 3 Extremities: Present normal inspection; Absent clubbing or cyanosis Psychiatric: Present normal affect and cooperative Meds Home Medications and Allergies Home Medications ?Medication ?Instructions ?Recorded ?Confirmed ?Type albuterol 90 mcg/actuation aerosol 90 mcg inhalation QID PRN 04/05/23 01/02/25 History inhaler Shortness Of Breath metformin 850 mg tablet 850 mg PO BID 04/05/23 01/02/25 History acetaminophen 650 mg 650 mg PO Q12H 12/13/23 01/02/25 History tablet,extended release (Tylenol 8 Hour) aspirin 81 mg tablet,delayed 81 mg PO DAILY 12/13/23 01/02/25 History release ([place] Low Dose Aspirin) atorvastatin 40 mg tablet 40 mg PO DAILY 12/13/23 01/02/25 History hydroxychloroquine 200 mg tablet 200 mg PO DAILY 12/13/23 01/02/25 History methocarbamol 750 mg tablet 750 mg PO HS 12/13/23 01/02/25 History cholecalciferol (vitamin D3) 50 50 mcg PO DAILY 09/30/24 01/02/25 History mcg (2,000 unit) capsule gabapentin 300 mg capsule 300 mg PO BID 09/30/24 01/02/25 History mycophenolate mofetil 500 mg tablet 500 mg PO BID #180 tabs 09/30/24 01/02/25 Rx prednisone 10 mg tablet 10 mg PO DAILY 09/30/24 01/02/25 History fluticasone fur. 100 mcg-umeclid 1 inh inhalation DAILY 30 days #28 10/20/24 01/02/25 Rx 62.5 mcg-vilant 25 mcg ea inhalat.powder (Trelegy Ellipta) New Prescriptions to Start Prescriptions: Allergies Allergy/AdvReac Type Severity Reaction Status Date / Time No Known Allergies Allergy Verified 01/02/25 09:20 Assessment and Plan *Assessment and plan (1) Lung nodule: Status: Acute Category: Medical Code(s): R91.1 - Solitary pulmonary nodule Plan This is not a pulmonary learning and development consultant. This is a history and physical note. Mr. Andrews is a 79-year-old male greater than [id number] smoking history stopped smoking January 2023 currently following in pulmonary clinic for exertional dyspnea, pulmonary emphysema, RA CT ILD multiple pulmonary nodules and restrictive lung disease found to have right lower lobe nodule that was PET avid presented to the hospital For an elective bronchoscopy procedure. He admits stable respiratory symptoms with no new complaints and last seen in pulmonary clinic. Patient admits he continued to take aspirin 81 mg daily. Denies any other antiplatelets or anticoagulants. Immunosuppressive therapy resumed and arthritis. Possible differentials include malignancy versus infectious etiology. Plan: Proceed with the procedure as previously planned.
--- NOTE | 2025-01-02 13:23 | XR_ITS ---
FINAL REPORT CLINICAL HISTORY: BRONCH fluoro 8:22, 502.5 s 153.26 mGy FINDINGS: FLUOROSCOPY 1 spot image obtained for bronchoscopy. 1.5 minutes utilizing 153.26 mGy. IMPRESSION: Fluoroscopy as above Reviewed, Interpreted and Dictated by Dash Gore MD Transcribed by Marine Fischer Authenticated and . [facility]
--- NOTE | 2025-01-02 13:56 | P.PNANES_ITS ---
[facility] Anesthesia Record Part I Anesthesia Record I Intake, IV Amount: 800 Hydration: Adequate Estimated blood loss (mL): 0 Urine output (mL): 0 Blood Products used (#): none Blood Pressure: 152/88 SaO2: 97 Pulse Rate: 83 Airway Patency: Patent Respiratory Rate: 16 Temperature: 97.0 F Patient is:: Awake, Nasal O2 and Stable Stable to PACU at:: 13:52
--- NOTE | 2025-01-02 14:01 | P.PCN_ITS ---
Procedure: Date: 01/02/25 Patient Date of :: 1945 Procedure Performed:: Navigational bronchoscopy, airway examination, bronchoalveolar lavage, trans bronchial fine-needle aspiration, trans bronchial brushing and trans bronchial biopsy of lung nodule, endobronchial biopsy and endobronchial ultrasound-guided lymph node surveillance and fine-needle aspiration of lymph node. Indications:: Lung nodules Performing Provider:: Florence Monge MD Referring Provider:: Dr: Cathie Hopper Sedation:: General anesthesia Procedure:: Navigational bronchoscopy, airway examination, bronchoalveolar lavage, trans bronchial fine-needle aspiration, trans bronchial brushing and trans bronchial biopsy of lung nodule, endobronchial biopsy and endobronchial ultrasound-guided lymph node surveillance and fine-needle aspiration of lymph node. A clean diagnostic bronchoscopy was advanced to the ET tube and airway examination was performed. Airways appeared grossly normal, no evidence of mucoid secretions, mucous plugging active bleeding/old blood clots noted. Moderate amount of secretions were noted. Diagnostic bronchoscopy was retracted, and Robotic Ion bronchoscopy was introduced through the ET tube. Patient images were previously uploaded into the ION Plan point software. The target nodule sampling was planned, and the pathway was mapped. The nodule measured 26 mm in long axis. Following airway examination, airway registration was performed using shape sensing robot assisted bronchoscopy (SSRAB). We were 2 mm from the near edge of the nodule in the RLL . A Radial EBUS - [id number] was inserted to confirm the location which was tangential. Under fluoroscopy guidance the samples were taken. Sampling: A flexion 21 needle was used to perform FNA of the RLL Lung nodule. A total of 6 passes were made. This was followed by passes with a needle brush, 2 pass was made. Transbronchial forceps biopsies were then performed with a total of 6 biopsies were performed in the RLLL Lung nodule. Bronchoalveolar lavage was performed with instillation of 20 cc normal saline with return of 10 cc back. Samples from transbronchial FNA, brush, forceps biopsy and bronchoalveolar lav age were sent in CytoLyt for cytopathologic examination. Ion robotic bronchoscopy was retracted and EBUS bronchoscope was introduced for lymph node surveillance. Five passes were taken using 21 gauge needing at lymph node stations 7. Resultant lymph node FNA sample were labelled separately for each lymph node station and were sent in CytoLyt for cytopathologic examination. Findings:: Please see procedure note Recommendations:: Postoperative bronchoscopy instructions Follow-up in pulmonary clinic in 5 to 7 days Complications:: No acute immediate complications Estimated blood obtained (mL): 5
[2025-01-02 14:02] LABS: POC Glucose,Bedside 82 gm/dL (70-110)
--- NOTE | 2025-01-02 14:04 | XR_ITS ---
FINAL REPORT CLINICAL HISTORY: post bronchoscopy COMPARISON: None FINDINGS: The heart size is normal. The mediastinum is normal. There is no focal infiltrate or edema. Scarring is noted in the left lung base and right perihilar region. There are no pleural effusions. There is no pneumothorax. There is no osseous abnormality. IMPRESSION: No acute cardiopulmonary process. No pneumothorax post bronchoscopy. Reviewed, Interpreted and Dictated by Dash Gore MD Transcribed by Jessica Montilla Authenticated and [facility]
[2025-01-02 14:05] LABS: POC Glucose,Bedside 91 gm/dL (70-110)
--- NOTE | 2025-01-02 14:54 | XR_ITS ---
FINAL REPORT CLINICAL HISTORY: SOB post bronch COMPARISON: 1 hour prior FINDINGS: The heart size is normal. The mediastinum is normal. There is chronic scarring in both lungs. No acute infiltrate. There are no pleural effusions. There is no pneumothorax. There is no osseous abnormality. IMPRESSION: Chronic bilateral scarring with no acute infiltrate. No pneumothorax post bronchoscopy. Reviewed, Interpreted and Dictated by Dash Gore MD Transcribed by Jessica Montilla Authenticated and [facility]
--- NOTE | 2025-01-05 08:07 | EXP.ANES.II ---
[facility] Anesthesia Record Part II Anesthesia Record Part II Discharge Time: 14:53 Destination: Surgical Day Care (OP Surgery) PACU nurse assessment reviewed?: Yes Patient Condition:: Good Anesthesia Complications:: None Swallowing reflex intact?: Yes Airway Patency: Patent Cyanosis?: No Blood Pressure: 141/92 SaO2: 92 Respiratory Rate: 18 Pulse Rate: 85 Temperature: 97.0 F Mental Status: Alert & Oriented Pain level:: 0 Nausea and/or vomitting:: None Intake, IV Amount: 0 Hydration: Adequate
[2025-01-05 08:08] VITALS: BP 141/92; PULSE 85; RESP 18; TEMP 36.1; O2SAT 92
== END 2025-01-02 14:53 | disposition home or self-care (01) ==
PROVIDERS: PCP Family Medicine; Visit Provider Internal Medicine Pulmonary Disease
PROC: (CPT 31623; principal; 2025-01-02 11:30)
DX: J84.10 Pulmonary fibrosis, unspecified (principal); J44.9 Chronic obstructive pulmonary disease, unspecified; M06.9 Rheumatoid arthritis, unspecified; Z79.82 Long term (current) use of aspirin; Z87.891 Personal history of nicotine dependence
CPT/HCPCS: 31623; 31624; 31627; 31628; 31629; 31652; 71045; 76000; 82962; 88112; 88173; 88305; 93005; J1100; J1805; J2003; J2405; J2704; J3010; J7120